=== PATIENT | male | born 1935 | race Caucasian/White ===

== ENCOUNTER 2016-11-19 11:20 | Day surgery (SDC) | payer MEDICARE, OTHER ==
[~2016-11-19 11:20] MED LIST: ASPIRIN 81MG TA81 MG PO; CIPRO 500MG TA500 MG PO; DOXAZOSIN MESYLA8 MG PO; FIBER THER3.4 GM/DOS PO; MULTI VITAMINS1 TA1 PO; NITROFURANTOIN100 M2 PO; PHENAZOPYRIDIN200 MG PO; PRAVASTATIN 40M40 MG PO
--- NOTE | 2016-11-19 13:32 | Operative Note ---
Colonoscopy (Estefan[facility]) Procedure date: 11/19/16 Date of : 33 Procedure:Colonoscopy Colonoscopy with cold snare polypectomy Indications: Mr. Hampton is an 81-year-old gentleman who is here for follow-up screening/ surveillance colonoscopy. This is his seventh or eighth colonoscopy and he has had no colon polyps in the last 10 years of surveillance colonoscopy. His last colonoscopy was performed by Dr. Keyur Bray 5 years ago. The patient formerly had colon polyps and had 12 polyps removed at the time of his initial colonoscopy. He reports no abdominal pain, weight loss, change in his bowel habits or rectal bleeding. He reports no family history of colon cancer. Performing Provider: Quita José MD Referrring Provider: Chencho Ritchie M.D./Kishore Mcneal M.D. Sedation: Fentanyl 100 mg IV/Versed 5 mg IV Procedure: Prior to the procedure, a history and physical exam was performed, and patient medications and allergies were reviewed. The risks and benefits of the procedure and the sedation options and risks were discussed with the patient. All questions were answered and informed consent was obtained. Patient identification and proposed procedure were verified by the physician and the nurse. The patient was placed in a left lateral decubitus position. Throughout the procedure, the patient's blood pressure, pulse, and oxygen saturations were monitored continuously. Findings: On digital rectal examination there was normal rectal tone. There were no external hemorrhoids. There was a prostate nodule that was pea sized along the lower margin of the prostate. The colonoscope was introduced through the anal canal to the rectum and advanced to the cecum. The ileocecal valve and appendiceal orifice were identified. The scope was advanced a short distance into the ileum which appeared grossly normal. The scope was then withdrawn into the colon. There was a single 5-6 mm flat polyp in the cecum removed via cold snare polypectomy. The remaining cecum, ascending and transverse colon and mucosa were grossly normal. There was very mild melanosis coli. There were scattered diverticuli throughout the descending and sigmoid colon (LEFT colon). The rectum itself was normal. Upon retroflexion within the rectum there were grade 1 internal hemorrhoids. Impressions: 1. Diminutive cecal polyp 2. Left-sided diverticulosis 3. Grade 1 internal hemorrhoids 4. Mild melanosis coli 5. Prostate nodule lower prostatic margin Recommendations: I do not feel that the patient will require any further screening/surveillance colonoscopy. I will follow up polyp histology. The patient has has bladder cancer and I am going to send him back to Dr. Kishore Mcneal for the prostate nodule. I will also obtain a PSA level today. I would recommend fiber supplementation on a long-term daily maintenance basis. Complications: None EBL (ml): 0 at 1332
[2016-11-19 16:29] VITALS: BP 106/66
== END 2016-11-19 14:15 | disposition home or self-care (01) ==
LOC: SDC 11:20
PROVIDERS: Internal Medicine Gastroenterology
PROC: 0DBH8ZX Excision of Cecum, Via Natural or Artificial Opening Endoscopic, Diagnostic (ICD-10-PCS; principal; 2016-11-19 12:30)
DX: Z12.11 Encounter for screening for malignant neoplasm of colon (principal); Z86.010 Personal history of colon polyps; D12.0 Benign neoplasm of cecum; K57.30 Diverticulosis of large intestine without perforation or abscess without bleeding; K63.89 Other specified diseases of intestine; N40.2 Nodular prostate without lower urinary tract symptoms; K64.0 First degree hemorrhoids

== ENCOUNTER 2017-01-01 09:30 | Day surgery (SDC) | payer MEDICARE, OTHER ==
[2017-01-01 11:28] VITALS: BP 141/71
--- NOTE | 2017-01-01 12:23 | Operative Note-Urology ---
Procedure/Operative Record Procedure DATE OF PROCEDURE: 01/01/17 PREOPERATIVE DIAGNOSIS: History of bladder carcinoma POSTOPERATIVE DIAGNOSIS: Same PROCEDURE PERFORMED: Flexible local cystoscopy SURGEON: Kishore Mcneal ANESTHESIA: Intraurethral Xylocaine jelly BRIEF HISTORY: Patient is 81 years of age status post LEFT nephroureterectomy as well as multiple remote superficial bladder carcinoma interventions. He presents today for local surveillance cystoscopy OPERATIVE NOTE: In the supine position the genital area was prepped and draped in standard fashion. Xylocaine jelly was instilled and penile clamp placed flexible cystoscope was then introduced. Urethra was unremarkable. Prostate shows signs of previous transurethral resection and is open. He has coarsely trabeculated bladder. No evidence of recurrent tumor. Scope was retroflexed and the bladder neck. The entire bladder mucosa was inspected. EBL (ml): 0 IMPRESSION: History of bladder carcinoma. PLAN: Patient will follow-up in 6 months in the office for urinalysis. We will anticipate repeat flexible cystoscopy in 1 year at 1043
== END 2017-01-01 11:19 | disposition home or self-care (01) ==
LOC: SDC 09:30
PROVIDERS: Urology
PROC: 0TJB8ZZ Inspection of Bladder, Via Natural or Artificial Opening Endoscopic (ICD-10-PCS; principal; 2017-01-01 10:00)
DX: Z85.51 Personal history of malignant neoplasm of bladder (principal)